=== PATIENT | female | born 1980 | race African-American/Black ===

== ENCOUNTER 2019-02-04 15:06 | Emergency (ER) | payer OTHER ==
--- OUTSIDE RECORDS SUMMARY | 2019-02-04 15:07 | XMS REPORT | Summary of Care ---
:1980 Author Organization [facility] Address [address] [place] [address] Care Team Providers Name Role Phone Varsha Saunders [facility] Primary Care Provider Reason for Visit Reason Comments Appointment Encounter Details Date Type Department Care Team Description 01/18/2019 Telephone [facility] Varsha Saunders, Appointment [address] [place] [address] [address] [facility] [phone] [place] [address] Allergies No Known Allergiesdocumented as of this encounter (statuses as of 01/19/2019) Medications Medication Sig Dispensed Refills Start Date End Date Status paroxetine (PAXIL) 40 Take 40 mg by 0 Active mg tabletIndications: mouth daily. Depression, unspecified depression type documented as of this encounter (statuses as of 01/19/2019) Active Problems Problem Noted Date Encounter for contraceptive management, unspecified type 09/13/2017 Depression, unspecified depression type 08/02/2016 Tobacco use disorder 08/05/2015 Well woman exam 05/08/2013 Overview: ICD10 Diagnosis Term National Facilities Manager Utility Depo-Provera contraceptive status 05/08/2013 History of depression 05/08/2013 Obesity (BMI 30-39.9) 05/08/2013 documented as of this encounter (statuses as of 01/19/2019) Resolved Problems Problem Noted Date Resolved Date Well woman exam without gynecological exam 09/13/2017 09/18/2018 Contraceptive management 08/05/2015 08/02/2016 Anemia 05/09/2013 08/05/2015 Overview: ICD10 Diagnosis Term National Facilities Manager Utility Rubella immune 05/08/2013 08/05/2015 Other general counseling and advice for contraceptive 02/12/2013 05/08/2013 management documented as of this encounter (statuses as of 01/19/2019) Immunizations Name Administration Dates Next Due Rubella 02/06/2010 Td 05/08/1999 Tdap 05/08/2013 documented as of this encounter Social History Tobacco Use Types Packs/Day Years Used Date Former Smoker Cigarettes 0.3 10 Quit: 07/2017 Smokeless Tobacco: Never Used Comments: smokes 10 cigarettes per day Alcohol Use Drinks/Week oz/Week Comments No 0 Standard drinks or equivalent 0.0 Sex Assigned at Date Recorded Not on file Job Start Date Occupation Industry Not on file Not on file Not on file Travel History Travel Start Travel End No recent travel history available. documented as of this encounter Last Filed Vital Signs Not on filedocumented in this encounter Plan of Treatment Date Type Specialty Care Team Description 02/06/2019 Nurse Visit OB Satellites Visit, [facility] Nurse Health Maintenance Due Date Last Done Comments INFLUENZA VACCINE (#1) 2019 PAP SMEAR 08/03/2019 08/02/2016, 05/08/2013, 04/02/2011, Additional history exists DTaP,Tdap,and Td Vaccines 05/08/2023 05/08/2013, 05/08/1999 (2 - Td) PNEUMOCOCCAL 0-64 YEARS Aged Out No longer eligible COMBINED SERIES based on patient's age to complete this topic documented as of this encounter Results Not on filedocumented in this encounter Insurance Payer Benefit Plan Subscriber ID Effective Phone Address Type / Group Dates [facility] xxxxxxxxx 2018-Prese [phone] Medicaid WOMEN nt [address] [place] [address] documented as of this encounter Advance Directives Name Relationship Healthcare Agent Communication Relationship Vivien Hernandez Mother Primary healthcare agent
--- OUTSIDE RECORDS SUMMARY | 2019-02-04 15:07 | XMS REPORT ---
:1980 Author Organization [facility] Address [address] [place] [address] Care Team Providers Name Role Phone Unavailable Unavailable Unavailable Problems This patient has no known problems. Allergies, Adverse Reactions, Alerts This patient has no known allergies or adverse reactions. Medications This patient has no known medications.
[2019-02-04] MEDS ORDERED: FAMOTIDINE 20 MG/2 ML VIAL IV ONE (17:33)
[2019-02-04] MEDS ORDERED: NA CHLORIDE 0.9% 1,000 ML ONE (17:33)
[2019-02-04] MEDS ORDERED: ONDANSETRON 4 MG/2 ML VIAL ONE (17:33)
[2019-02-04 17:53] LABS: Urine Blood 1+ (NEG); Urine Glucose NEGATIVE (NEG); Urine Protein NEGATIVE (NEG); Urine Specific Gravity 1.025 (1.005-1.030); Urine pH 5.5 (5.0-7.0)
[2019-02-04 18:00] LABS: Absolute Lymphocytes (CBC) 2.1 K/uL (0.7-4.9); Basophils % 0.6 % (0-1.3); Hematocrit 36.1 % (36.0-45.0); Lymphocytes % 25.3 % (15.3-44.8); MPV 8.6 fL (7.6-11.3); RBC Red Blood Cell Count 5.56 M/uL (3.86-4.86)
[2019-02-04 18:04] LABS: Urine Bacteria >50 /HPF (<20)
[2019-02-04 18:05] LABS: Urine Amorphous Sediment 4+ /HPF (NONE SEEN); Urine Culture Reflex Order REFLEXED; Urine Mucus 1+ /HPF (NONE SEEN)
[2019-02-04 18:15] LABS: ALT/SGPT 10 U/L (12-78); AST/SGOT 8 U/L (15-37); Albumin 3.1 g/dL (3.4-5.0); Alkaline Phosphatase 86 U/L (45-117); BUN Blood Urea Nitrogen 7 mg/dL (7-18); Bicarbonate 25 mmol/L (21-32); Bilirubin Direct < 0.1 mg/dL (0-0.2); Bilirubin Total 0.3 mg/dL (0.2-1.0); Glucose Level 84 mg/dL (74-106); Lipase 60 U/L (73-393); Potassium 3.7 mmol/L (3.5-5.1); Protein, Total 8.3 g/dL (6.4-8.2); Sodium Level 140 mmol/L (136-145)
--- NOTE | 2019-02-04 19:03 | RAD REPORT ---
EXAM DESCRIPTION: US - Abdomen Exam Limited - 02/04/2019 6:43 pm CLINICAL HISTORY: ABD PAIN COMPARISON: No comparisons FINDINGS: The gallbladder demonstrates no gallstones. 2-3 mm polyp suspected. No pericholecystic flu id or gallbladder wall thickening. The common bile duct is normal measuring 3 mm. The liver demonstrates no findings of intrahepatic biliary dilatation. IMPRESSION: No pathologic gallbladder or biliary tree abnormality.
--- NOTE | 2019-02-04 19:53 | EDPHYS ---
Physician Documentation [facility] Name: Dante Hernandez Age: 38 yrs Sex: Female : 1980 Arrival Date: 02/04/2019 Time: 15:09 Bed 17 Private MD: ED Physician Guillermo Palomo HPI: 02/04 17:17 This 38 yrs old Black Female presents to ER via Ambulatory with complaints of Abdominal cp Pain, Vomiting. 17:17 The patient presents with abdominal pain in the upper abdomen. Onset: The cp symptoms/episode began/occurred 5 day(s) ago. The symptoms do not radiate. Associated signs and symptoms: Pertinent positives: nausea and vomiting. Historical: - Allergies: 15:11 No Known Allergies; sv - PSHx: 15:11 None; sv - Immunization history:: Adult Immunizations up to date. - Social history:: Smoking status: Patient/guardian denies using tobacco. - Ebola Screening: : Patient negative for fever greater than or equal to 101.5 degrees Fahrenheit, and additional compatible Ebola Virus Disease symptoms Patient denies exposure to infectious person Patient denies travel to an Ebola-affected area in the 21 days before illness onset No symptoms or risks identified at this time. ROS: 17:25 Constitutional: Negative for body aches, chills, fever, poor PO intake. cp 17:25 Eyes: Negative for injury, pain, redness, and discharge. cp 17:25 ENT: Negative for drainage from ear(s), ear pain, sore throat, difficulty swallowing, difficulty handling secretions. 17:25 Cardiovascular: Negative for chest pain, edema, palpitations. 17:25 Respiratory: Negative for cough, shortness of breath, wheezing. 17:25 Abdomen/GI: Positive for abdominal pain, nausea and vomiting, anorexia, Negative for constipation, black/tarry stool, rectal bleeding. 17:25 Back: Negative for radiated pain. 17:25 : Negative for urinary symptoms. 17:25 Neuro: Negative for altered mental status, headache. 17:25 All other systems are negative. Exam: 17:30 Constitutional: The patient appears in no acute distress, alert, awake, non-toxic, well cp developed, well nourished. 17:30 Head/Face: Normocephalic, atraumatic. cp 17:30 Eyes: Periorbital structures: appear normal, Conjunctiva: normal, no exudate, no injection, Sclera: no appreciated abnormality, Lids and lashes: appear normal, bilaterally. 17:30 ENT: External ear(s): are unremarkable, Nose: is normal, Mouth: is normal, Posterior pharynx: is normal, airway is patent. 17:30 Chest/axilla: Inspection: normal, Palpation: is normal, no crepitus, no tenderness. 17:30 Cardiovascular: Rate: normal, Rhythm: regular. 17:30 Respiratory: the patient does not display signs of respiratory distress, Respirations: normal, no retractions, labored breathing, is not present. 17:30 Abdomen/GI: Inspection: obese Bowel sounds: active, all quadrants, Palpation: soft, in all quadrants, moderate abdominal tenderness, in the epigastric area and right upper quadrant, rebound tenderness, is not appreciated, voluntary guarding, is elicited in the epigastric area. 17:30 Back: pain, is absent, ROM is normal. Vital Signs: 15:11 BP 128 / 84; Pulse 98; Resp 18; Temp 99.4; Pulse Ox 97% ; Weight 113.4 kg; Height 5 ft. sv 7 in. (170.18 cm); Pain 3/10; 17:57 BP 118 / 83; Pulse 90; Resp 18; Pulse Ox 100% on R/A; Pain 0/10; em 19:16 BP 133 / 76; Pulse 80; Resp 16 S; Temp 99.2(O); Pulse Ox 100% on R/A; Pain 0/10; cc3 20:05 BP 131 / 80; Pulse 79; Resp 17 S; Pulse Ox 100% on R/A; Pain 2/10; cc3 15:11 Body Mass Index 39.16 (113.40 kg, 170.18 cm) sv MDM: 17:12 Patient medically screened. cp 17:30 Differential diagnosis: cholecystitis, Cholelithiasis, gastritis, pancreatitis, Peptic cp Ulcer Disease, Perf. Duodenal Ulcer, Perf. Gastric Ulcer, Ureterolithiasis, urinary tract infection. 19:45 Data reviewed: vital signs, nurses notes, lab test result(s), radiologic studies, jr8 ultrasound. Data interpreted: Pulse oximetry: on room air is 100 %. Interpretation: normal. Counseling: I had a detailed discussion with the patient and/or guardian regarding: the historical points, exam findings, and any diagnostic results supporting the discharge/admit diagnosis, lab results, radiology results, the need for outpatient follow up, a owner e commerce company, to return to the emergency department if symptoms worsen or persist or if there are any questions or concerns that arise at home. ED course: Patient doing better. No acute findings on labs or imaging. Reassessed abdomen. Soft with only mild tenderness to upper epigastric region. No rigidity or rebounding. Recommended that we try some pain medicine and nausea medicine for now. If she were to run fevers or worsen to come back. Patient good with this plan . 02/04 17:17 Order name: Basic Metabolic Panel 02/04 17:17 Order name: CBC with Diff 02/04 17:17 Order name: Creatinine for Radiology 02/04 17:17 Order name: Hepatic Function 02/04 17:17 Order name: Lipase 02/04 17:17 Order name: Urine Microscopic Only 02/04 17:32 Order name: Urine Dipstick--Ancillary (enter results) 02/04 17:32 Order name: Urine --Ancillary (enter results) 02/04 17:54 Order name: Urine --Ancillary; Complete Time: 18:00 [facility] 02/04 17:54 Order name: Urine Dipstick-Ancillary; Complete Time: 18:00 [facility] 02/04 18:06 Order name: Urine Microscopic Only; Complete Time: 18:05 [facility] 02/04 18:15 Order name: Creatinine (Radiology Only); Complete Time: 18:16 [facility] 02/04 18:16 Order name: Basic Metabolic Panel; Complete Time: 18:16 [facility] 02/04 18:16 Order name: Liver (Hepatic) Function; Complete Time: 18:16 [facility] 02/04 17:17 Order name: IV Saline Lock; Complete Time: 17:59 02/04 17:17 Order name: Labs collected and sent; Complete Time: 17:59 02/04 17:17 Order name: Urine Dipstick-Ancillary (obtain specimen); Complete Time: 17:59 02/04 17:17 Order name: Urine Test (obtain specimen); Complete Time: 17:59 02/04 17:29 Order name: US Abdomen Limited: RUQ/epigastric area 09/15 18:16 Order name: Lipase; Complete Time: 18:16 EDMS 02/04 18:21 Order name: CBC with Automated Diff EDMS 02/04 19:10 Order name: US; Complete Time: 19:12 EDMS Administered Medications: 17:46 Drug: Zofran 4 mg Route: IVP; Site: right antecubital; hb 18:45 Follow up: Response: No adverse reaction; Nausea is decreased em 17:46 Drug: Pepcid 20 mg Route: IVP; Site: right antecubital; hb 18:45 Follow up: Response: No adverse reaction em 17:48 Drug: NS 0.9% 1000 ml Route: IV; Rate: 1 bolus; Site: right antecubital; hb 18:45 Follow up: IV Status: Completed infusion; IV Intake: 1000ml em Disposition: 02/05 08:50 Co-signature as Attending Physician, Guillermo Palomo MD I agree with the assessment and kdr plan of care. Disposition: 02/04/19 19:51 Discharged to Home. Impression: Upper abdominal pain, unspecified, Vomiting. - Condition is Stable. - Discharge Instructions: Abdominal Pain, Adult, Nausea and Vomiting, Adult. - Prescriptions for Bentyl 20 mg Oral Tablet - take 1 tablet by ORAL route every 6 hours As needed; 20 tablet. Zofran 4 mg Oral Tablet - take 1 tablet by ORAL route every 12 hours As needed; 20 tablet. - Medication Reconciliation Form, Thank You Letter, Antibiotic Education, Prescription Opioid Use, Work release form form. - Follow up: Lazarus Melchor MD; When: 2 - 3 days; Reason: Recheck today's complaints, Continuance of care, Re-evaluation by your physician. - Problem is new. - Symptoms have improved. Signatures: Dispatcher [employer] [facility] Tayla Peterson, RN Guillermo Oneill MD MD kdr Damian, Madhu, RADIAL DRILL PRESS SET UP OPERATOR RADIAL DRILL PRESS SET UP OPERATOR em Reginaldo Mitchell PA PA jr8 Page, Corey, PA PA cp Baxter, Heather RN RN Cinthya Evans cc3 Corrections: (The following items were deleted from the chart) 02/04 20:15 19:51 02/04/2019 19:51 Discharged to Home. Impression: Upper abdominal pain, cc3 unspecified; Vomiting. Condition is Stable. Forms are Medication Reconciliation Form, Thank You Letter, Antibiotic Education, Prescription Opioid Use. Follow up: Lazarus Melchor; When: 2 - 3 days; Reason: Recheck today's complaints, Continuance of care, Re-evaluation by your physician. Problem is new. Symptoms have improved. jr8
--- NOTE | 2019-02-04 19:53 | ER ---
Nurse's Notes [facility] Name: Dante Hernandez Age: 38 yrs Sex: Female : 1980 Arrival Date: 02/04/2019 Time: 15:09 Bed 17 Private MD: Diagnosis: Upper abdominal pain, unspecified;Vomiting Presentation: 02/04 15:10 Presenting complaint: Patient states: upper abd pain started Wed and vomiting started sv today. Transition of care: patient was not received from another setting of care. Onset of symptoms was January 31, 2019. Risk Assessment: Do you want to hurt yourself or someone else? Patient reports no desire to harm self or others. Care prior to arrival: None. 15:10 Method Of Arrival: Ambulatory sv 15:10 Acuity: MOODY 3 sv 17:15 Initial Sepsis Screen: Does the patient meet any 2 criteria? No. Patient's initial em sepsis screen is negative. Does the patient have a suspected source of infection? No. Patient's initial sepsis screen is negative. Triage Assessment: 15:10 General: Appears in no apparent distress. uncomfortable, well groomed, well developed, sv Behavior is calm, cooperative, appropriate for age. Pain: Complains of pain in epigastric area, right upper quadrant and left upper quadrant. Neuro: Level of Consciousness is awake, alert, obeys commands, Gait is steady. Respiratory: Respiratory effort is even, unlabored, Respiratory pattern is regular, symmetrical. GI: Reports upper abdominal pain, vomiting. Historical: - Allergies: 15:11 No Known Allergies; sv - PSHx: 15:11 None; sv - Immunization history:: Adult Immunizations up to date. - Social history:: Smoking status: Patient/guardian denies using tobacco. - Ebola Screening: : Patient negative for fever greater than or equal to 101.5 degrees Fahrenheit, and additional compatible Ebola Virus Disease symptoms Patient denies exposure to infectious person Patient denies travel to an Ebola-affected area in the 21 days before illness onset No symptoms or risks identified at this time. Screenin:00 Abuse screen: Denies threats or abuse. Nutritional screening: No deficits noted. em Tuberculosis screening: No symptoms or risk factors identified. Fall Risk None identified. Assessment: 17:15 General: Appears in no apparent distress. comfortable, Behavior is calm, cooperative, em Denies fever. Pain: Complains of pain in left upper quadrant and right upper quadrant and epigastric area Pain currently is 0 out of 10 on a pain scale. Pain began 1 week ago. Neuro: Level of Consciousness is awake, alert, obeys commands, Oriented to person, place, time, situation. Cardiovascular: Capillary refill < 3 seconds Patient's skin is warm and dry. Respiratory: Airway is patent Respiratory effort is even, unlabored, Respiratory pattern is regular, symmetrical. GI: Abdomen is flat, Bowel sounds present X 4 quads. Abd is soft X 4 quads Abdomen is tender to palpation in epigastric area, right upper quadrant and left upper quadrant Reports bloody stool, nausea, vomiting. : Denies burning with urination. Derm: Skin is intact, is healthy with good turgor, Skin is pink, warm \T\ dry. Musculoskeletal: Capillary refill < 3 seconds, Range of motion: intact in all extremities. 17:29 Reassessment: I agree with previous assessment. hb 18:25 Reassessment: Patient appears in no apparent distress at this time. Patient and/or em family updated on plan of care and expected duration. Pain level reassessed. Patient is alert, oriented x 3, equal unlabored respirations, skin warm/dry/pink. Patient denies pain at this time. 19:10 Reassessment: Patient appears in no apparent distress at this time. Patient and/or cc3 family updated on plan of care and expected duration. Pain level reassessed. Patient is alert, oriented x 3, equal unlabored respirations, skin warm/dry/pink. Received this female patient from morning shift [facility] as a case of abdominal pain, with IV cannula gauge 22 at the left ACV saline locked. Patient denies pain at this time. Patient states feeling better. General: Appears in no apparent distress. comfortable, Behavior is calm, cooperative, appropriate for age. Pain: Complains of pain in abdomen and epigastric area. Neuro: Level of Consciousness is awake, alert, obeys commands, Oriented to person, place, time, situation, Appropriate for age. Cardiovascular: Denies chest pain, Capillary refill < 3 seconds Patient's skin is warm and dry. Respiratory: Airway is patent Respiratory effort is even, unlabored, Respiratory pattern is regular, symmetrical. GI: Abdomen is flat. : No signs and/or symptoms were reported regarding the genitourinary system. EENT: No signs and/or symptoms were reported regarding the EENT system. Derm: Skin is intact, is healthy with good turgor, Skin is pink, warm \T\ dry. normal. Musculoskeletal: Circulation, motion, and sensation intact. Range of motion: intact in all extremities. 20:15 Reassessment: Patient appears in no apparent distress at this time. Patient and/or cc3 family updated on plan of care and expected duration. Pain level reassessed. Patient is alert, oriented x 3, equal unlabored respirations, skin warm/dry/pink. ADRIEL Mitchell discharged the patient home with prescriptions given. IV cannula removed and patient left ER vitally stable and ambulatory. NO valuables left in the patient's room. Patient states feeling better. Patient states symptoms have improved. Vital Signs: 15:11 BP 128 / 84; Pulse 98; Resp 18; Temp 99.4; Pulse Ox 97% ; Weight 113.4 kg; Height 5 ft. sv 7 in. (170.18 cm); Pain 3/10; 17:57 BP 118 / 83; Pulse 90; Resp 18; Pulse Ox 100% on R/A; Pain 0/10; em 19:16 BP 133 / 76; Pulse 80; Resp 16 S; Temp 99.2(O); Pulse Ox 100% on R/A; Pain 0/10; cc3 20:05 BP 131 / 80; Pulse 79; Resp 17 S; Pulse Ox 100% on R/A; Pain 2/10; cc3 15:11 Body Mass Index 39.16 (113.40 kg, 170.18 cm) sv ED Course: 15:09 Patient arrived in ED. rg4 15:11 Triage completed. sv 15:11 Arm band placed on Patient placed in waiting room, Patient notified of wait time. sv 17:00 Patient has correct armband on for positive identification. Placed in gown. Bed in low em position. Call light in reach. Adult w/ patient. Pulse ox on. NIBP on. 17:10 Nikolai Valdez PA is PHCP. cp 17:10 Guillermo Palomo MD is Attending Physician. cp 17:13 Madhu Salgado LVN is Primary Nurse. em 18:00 PHCP role handed off by Nikolai Valdez PA jr8 18:00 [facility] Mitchell [facility]. jr8 18:07 Initial lab(s) drawn, by me, sent to lab. Urine collected: clean catch specimen, clear. em Inserted saline lock: 22 gauge in right antecubital area, using aseptic technique. Blood collected. 18:39 Ultrasound completed. Patient tolerated well. sg3 19:51 Lazarus Melchor MD is Referral Physician. jr8 20:00 No provider procedures requiring assistance completed. IV discontinued, intact, cc3 bleeding controlled, No redness/swelling at site. Pressure dressing applied. Administered Medications: 17:46 Drug: Zofran 4 mg Route: IVP; Site: right antecubital; hb 18:45 Follow up: Response: No adverse reaction; Nausea is decreased em 17:46 Drug: Pepcid 20 mg Route: IVP; Site: right antecubital; hb 18:45 Follow up: Response: No adverse reaction em 17:48 Drug: NS 0.9% 1000 ml Route: IV; Rate: 1 bolus; Site: right antecubital; hb 18:45 Follow up: IV Status: Completed infusion; IV Intake: 1000ml em Intake: 18:45 IV: 1000ml; Total: 1000ml. em Outcome: 19:51 Discharge ordered by MD. jr8 20:00 Discharged to home ambulatory. cc3 20:00 Condition: stable 20:00 Discharge instructions given to patient, Instructed on discharge instructions, follow up and referral plans. medication usage, Demonstrated understanding of instructions, follow-up care, medications, Prescriptions given X 2. 20:15 Patient left the ED. cc3 Signatures: Tayla Peterson RN RN sv Munoz, Edgar, OCEANOGRAPHY PROFESSOR OCEANOGRAPHY PROFESSOR em Reginaldo Mitchell PA PA jr8 Nikolai Valdez PA PA cp Baxter, Heather, RN RN hb Garcia, Rubi rg4 Godinez, Sarah 3 Cinthya Block cc3
[2019-02-04 20:33] LABS: Platelet Estimate INCR; Urine White Blood Cell Casts OK
[2019-02-04 20:34] LABS: Anisocytosis 1+; Blood Morphology Comment NOTED (NOT SEEN); Hypochromasia 1+; Target Cells 1+
[2019-02-04 21:50] VITALS: O2SAT 100
[2019-02-04 21:51] VITALS: BP 133/76; TEMP 99.2
== END 2019-02-04 20:15 | disposition home or self-care (01) ==
LOC: ER 15:06
DX: R10.10 Upper abdominal pain, unspecified (principal)
CPT/HCPCS: 96361; 87088; 85025; 87086; 80048; 36415; 81025; 80076; 83690; 76705; 96375; 96374; 99284; J7030; J2405; 81003; 81015